=== PATIENT | female | born 1940 | race Hispanic/Latino ===

== ENCOUNTER 2018-02-02 11:55 | Emergency (ER) | payer MEDICARE ==
[~2018-02-02] VITALS: Ht 157.5 cm; Wt 59.0 kg
[2018-02-02] MEDS ORDERED: DIPHENHYDRAMINE HCL INJ 50 MG/ML VIAL IV ONE (13:00)
--- NOTE | 2018-02-02 13:00 | Diagnostic Imaging Report ---
EXAMINATION: PA and lateral views of the chest. COMPARISON: None CLINICAL HISTORY: Fall DISCUSSION: The lungs are hyperinflated with increased AP diameter of the chest. Mild biapical pleural-parenchymal scar. No focal consolidation, pleural effusion, or pneumothorax. Cardiomediastinal contour and pulmonary vasculature are within normal limits. No acute osseous abnormality. Cervical spine fusion hardware is partially visualized. IMPRESSION: No acute cardiopulmonary abnormalities. Signed by: Dr. Bryan Hickey M.D. on 02/02/2018 12:56 PM
--- NOTE | 2018-02-02 13:23 | Diagnostic Imaging Report ---
Exam: Right knee, 3 views History: Fall, pain Comparison: None. Findings: No acute, displaced fracture or dislocation. Minimal patellofemoral osteophytosis. Joint spaces are otherwise well-maintained. No joint effusion. No soft tissue abnormalities. Impression: No acute osseous abnormality. Signed by: Dr. Bryan Hickey M.D. on 02/02/2018 1:20 PM
--- NOTE | 2018-02-02 13:48 | Diagnostic Imaging Report ---
History:Fall, tripped over cement Comparison studies:None Technique: Axial images were obtained from the skull base to the vertex. Coronal and sagittal images reconstructed from the axial data. Intravenous contrast: None Dose modulation, iterative reconstruction, and/or weight based adjustment of the mA/kV was utilized to reduce the radiation dose to as low as reasonably achievable. Findings: Scalp/skull: Small right frontal and left parietal scalp hematomas with trace of emphysema in the frontal region. No underlying fractures. Extra-axial spaces: No masses. No fluid collections. Brain sulci: Mildly prominent. Moderately prominent at the sylvian fissures Ventricles: Mild compensatory dilatation. Moderately prominent temporal horn No hydrocephalus. Parenchyma: Scattered hypodensities in the supratentorial white matter are small vessel ischemic changes. No masses, hemorrhage, acute or chronic cortical vascular insults. Sellar/suprasellar region: No abnormalities. Craniocervical junction: Patent foramen magnum. No Chiari one malformation. Incidental findings: Atherosclerotic calcifications in the carotid siphons . Impression: No acute abnormalities. Chronic findings: 1. Mild generalized volume loss. Moderate temporal lobe volume loss, which can seen in some dementias (Alzheimer's disease) 2. Mild supratentorial white matter small vessel ischemic changes. Signed by: DR Aleksey Gan M.D. on 02/02/2018 1:45 PM
[2018-02-02] MEDS ORDERED: SIMVASTATIN20 MG PO (13:55)
[2018-02-02] MEDS ORDERED: MECLIZINE HCL12.5 MG PO (13:55)
[2018-02-02] MEDS ORDERED: LOSARTAN POTASS25 MG (13:55)
[2018-02-02] MEDS ORDERED: GABAPENTIN100 MG (13:55)
--- NOTE | 2018-02-02 13:57 | Diagnostic Imaging Report ---
History: Fall, tripped over segment Comparison studies: None Technique: Axial images were obtained through the cervical region.. Coronal and sagittal images reconstructed from the axial data.. Intravenous contrast: None Dose modulation, iterative reconstruction, and/or weight based adjustment of the mA/kV was utilized to reduce the radiation dose to as low as reasonably achievable. Findings: Fractures: None. Soft tissues: No gross abnormalities. Atlantoaxial articulation: Intact. Alignment: Straightening of the normal lordosis. Grade 1 anterolisthesis of C4 over C5. No scoliosis. Cervicomedullary junction: No abnormalities. The foramen magnum is patent. Anterior fusion at C5-C6 without complication Vertebrae: No infection or neoplasm. Degenerative changes: Atlantoaxial joint degenerative changes without acute abnormality. Uncinate process and facet hypertrophy results in multilevel [id number] foraminal narrowing most significant at C4-5 and C5-6 on the right. Partially visualized pleural-based opacity in the right lung apex, could be infectious in etiology. IMPRESSION: 1. No acute cervical spine abnormalities. 2. Cannot exclude ligament, spinal cord and or vascular abnormalities on the basis of this examination. Signed by: DR Aleksey Gan M.D. on 02/02/2018 1:54 PM
[2018-02-02] MEDS ORDERED: ULTRAM 50MG50 MG PO (14:05)
[2018-02-02] MEDS ORDERED: ACETAMINOPHEN 325 MG TAB PO ONE (14:15)
[2018-02-02 15:26] VITALS: BP 140/70
--- NOTE | 2018-03-01 19:44 | Discharge Summary ---
NO DICTATION. 0 minutes. PATRICIA HOLLIS MD Job#: [id number] DEE DEE
== END 2018-02-02 15:27 | disposition home or self-care (01) ==
LOC: ER 11:55
DX: S00.83XA Contusion of other part of head, initial encounter (principal); S80.01XA Contusion of right knee, initial encounter; W01.0XXA Fall on same level from slipping, tripping and stumbling without subsequent striking against object, initial encounter; Y92.488 Other paved roadways as the place of occurrence of the external cause
CPT/HCPCS: 70450; 71046; 72125; 99283

== ENCOUNTER 2020-12-18 12:57 | Emergency (ER) | payer MEDICARE ==
[~2020-12-18] VITALS: Ht 157.5 cm; Wt 59.0 kg
[~2020-12-18 12:57] MED LIST: GABAPENTIN100 MG; LOSARTAN POTASS25 MG; MECLIZINE HCL12.5 MG PO; SIMVASTATIN20 MG PO; ULTRAM 50MG50 MG PO
[2020-12-18] MEDS ORDERED: CASIRIVIMAB/IMDEVIMAB 10 ML in SODIUM CHLORIDE 0.9% 100 ML IV ONE (15:45)
== END 2020-12-18 17:44 | disposition home or self-care (01) ==
LOC: ER 13:46
DX: R50.9 Fever, unspecified (principal); R05 Cough; U07.1 COVID-19; I10 Essential (primary) hypertension; E78.5 Hyperlipidemia, unspecified; M81.0 Age-related osteoporosis without current pathological fracture
CPT/HCPCS: 99283; J7050; U0002

== ENCOUNTER 2021-03-31 10:23 | Emergency (ER) | payer MEDICARE ==
[~2021-03-31] VITALS: Ht 157.5 cm; Wt 45.4 kg
[2021-03-31] MEDS ORDERED: SODIUM CHLORIDE 0.9% 1000ML 1,000 ML IV ONE (12:45)
[2021-03-31 12:57] LABS: BASOPHILS % 0.4 % (0.0-1.0); EOSINOPHILS % 0.2 % (0.0-6.0); HEMOGLOBIN 13.2 g/dL (12.0-16.0); LYMPHOCYTES # (AUTO) 0.6 (1.0-3.2); LYMPHOCYTES % 6.2 % (18.0-39.1); MEAN CORPUSCULAR HEMOGLOBIN 28.6 pg (28-32); MEAN CORPUSCULAR VOLUME 86.8 fL (81-99); MONOCYTES # (AUTO) 0.5 (0.2-0.8); MONOCYTES % 5.5 % (4.4-11.3); NEUTROPHILS # (AUTO) 8.5 (2.1-6.9); NEUTROPHILS % 87.2 % (38.7-80.0); PLATELET COUNT 312 x10e3/uL (140-360); RED BLOOD COUNT 4.61 x10e6/uL (3.6-5.1)
[2021-03-31 13:21] LABS: ALBUMIN 3.8 g/dL (3.5-5.0); ALBUMIN/GLOBULIN RATIO 1.1 (0.8-2.0); ANION GAP 14.9 mmol/L (8-16); CALCIUM 8.8 mg/dL (8.4-10.2); CREATININE, SERUM 0.86 mg/dL (0.57-1.11); POTASSIUM 3.9 mmol/L (3.5-5.1)
[2021-03-31] MEDS ORDERED: ONDANSETRON HCL INJ 2MG/ML 2ML 2 MG/ML VIAL IV STA (13:23)
[2021-03-31 14:35] LABS: CLARITY,URINE CLEAR (CLEAR); COLOR,URINE YELLOW (YELLOW); KETONES,URINE NEGATIVE (NEGATIVE); LEUKOCYTE ESTERASE ,URINE NEGATIVE (NEGATIVE); NITRITE,URINE NEGATIVE (NEGATIVE); PROTEIN,URINE DIPSTICK NEGATIVE (NEGATIVE); URINE UROBILINOGEN 0.2 mg/dL (0.2 - 1)
== END 2021-03-31 15:30 | disposition home or self-care (01) ==
LOC: ER 11:51
DX: R11.2 Nausea with vomiting, unspecified (principal); R42 Dizziness and giddiness; R19.7 Diarrhea, unspecified; I10 Essential (primary) hypertension; E78.5 Hyperlipidemia, unspecified; M81.0 Age-related osteoporosis without current pathological fracture
CPT/HCPCS: 36415; 80053; 81001; 85025; 93005; 99283; C9113; J2405; J7030

== ENCOUNTER 2021-07-26 17:41 | Emergency (ER) | payer MEDICARE ==
[~2021-07-26] VITALS: Ht 157.5 cm; Wt 45.4 kg
[2021-07-26 18:31] LABS: BASOPHILS % 0.6 % (0.0-1.0); EOSINOPHILS # (AUTO) 0.1 (0.0-0.4); EOSINOPHILS % 0.9 % (0.0-6.0); HEMATOCRIT 40.1 % (34.2-44.1); HEMOGLOBIN 13.5 g/dL (12.0-16.0); LYMPHOCYTES # (AUTO) 0.9 (1.0-3.2); LYMPHOCYTES % 13.9 % (18.0-39.1); MEAN CORPUSCULAR HEMOGLOBIN 28.7 pg (28-32); MEAN CORPUSCULAR HGB CONC 33.7 g/dL (31-35); MEAN CORPUSCULAR VOLUME 85.3 fL (81-99); MONOCYTES # (AUTO) 0.7 (0.2-0.8); NEUTROPHILS # (AUTO) 4.7 (2.1-6.9); NEUTROPHILS % 73.3 % (38.7-80.0); PLATELET COUNT 291 x10e3/uL (140-360); RED CELL DISTRIBUTION WIDTH 14.3 % (11.7-14.4)
[2021-07-26 18:48] LABS: ALBUMIN 3.7 g/dL (3.5-5.0); ALBUMIN/GLOBULIN RATIO 0.9 (0.8-2.0); ANION GAP 11.8 mmol/L (8-16); CALCIUM 8.8 mg/dL (8.4-10.2); CREATININE, SERUM 1.05 mg/dL (0.57-1.11); POTASSIUM 3.8 mmol/L (3.5-5.1)
[2021-07-26 19:03] LABS: CLARITY,URINE SL CLOUDY (CLEAR); COLOR,URINE YELLOW (YELLOW); KETONES,URINE NEGATIVE (NEGATIVE); LEUKOCYTE ESTERASE ,URINE TRACE (NEGATIVE); NITRITE,URINE NEGATIVE (NEGATIVE); PROTEIN,URINE DIPSTICK TRACE (NEGATIVE); URINE UROBILINOGEN 1 mg/dL (0.2 - 1)
[2021-07-26 19:17] LABS: BACTERIA,URINE MODERATE /HPF; EPITHELIAL CELLS,URINE FEW /LPF; RBC,URINE 0-5 /HPF (0-5); WBC,URINE (MAN) 0-5 /HPF (0-5)
[2021-07-26] MEDS ORDERED: CEPHALEXIN500 MG PO (19:23)
[2021-07-26 19:29] VITALS: BP 137/72
== END 2021-07-26 19:46 | disposition home or self-care (01) ==
LOC: ER 17:45
DX: R82.71 Bacteriuria (principal); G30.9 Alzheimer's disease, unspecified; F02.80 Dementia in other diseases classified elsewhere, unspecified severity, without behavioral disturbance, psychotic disturbance, mood disturbance, and anxiety; I10 Essential (primary) hypertension; E78.5 Hyperlipidemia, unspecified; M81.8 Other osteoporosis without current pathological fracture
CPT/HCPCS: 36415; 70450; 71045; 80053; 81001; 84484; 85025; 99284